=== PATIENT | female | born 2000 | race African-American/Black ===

== ENCOUNTER 2019-11-27 08:09 | Inpatient (IN) | payer MEDICAID ==
[~2019-11-27] VITALS: Ht 167.6 cm; Wt 95.3 kg
[2019-11-27 09:04] LABS: HEMATOCRIT. 53.4 % (36.0-48.0); HEMOGLOBIN. 18.1 g/dL (12.0-16.0); LYMPHOCYTES % 10.6 % (20.0-50.0); MEAN CORPUSCULAR HEMOGLOBIN 33.5 pg (28.0-32.0); MEAN CORPUSCULAR VOLUME 98.8 fL (81.0-99.0); MONOCYTES % 6.5 % (2.0-8.0); NEUTROPHILS % 81.9 % (40.0-76.0); RED CELL DISTRIBUTION WIDTH 13.1 % (11.6-14.6)
[2019-11-27 09:07] LABS: CHLORIDE 97 mEq/L (98-107)
[2019-11-27 09:08] LABS: PROTHROMBIN TIME 10.4 sec (9.6-11.0)
[2019-11-27 09:16] LABS: HCG SCREEN NEGATIVE
[2019-11-27 09:25] LABS: CLARITY URINE CLEAR (CLEAR); KETONES URINE 4+ (NEGATIVE); LEUKOCYTE ESTERASE URINE NEGATIVE (NEGATIVE); NITRITE URINE NEGATIVE (NEGATIVE); OCCULT BLOOD URINE 3+ (NEGATIVE); PROTEIN URINE 2+ (NEGATIVE); SPECIFIC GRAVITY URINE 1.031 (1.005-1.030); UROBILINOGEN URINE 0.2 E.U./dL (0.2-1.0)
[2019-11-27 09:32] LABS: COLOR URINE PALE YELLOW (YELLOW)
[2019-11-27 09:47] LABS: PLATELET 317 x1000/uL (130-400)
[2019-11-27] MEDS ORDERED: INSULIN REGULAR (DRIP) 100 UNITS in SODIUM CHLORIDE 0.9% 99 ML IV SCH (10:15)
[2019-11-27] MEDS ORDERED: SODIUM CHLORIDE 0.9% 1,000 ML IV ONE ×2 (10:27→13:09)
[2019-11-27 10:53] LABS: BG BASE EXCESS -26.7 mmol/L (-2.0-2.0); BG CARBOXYHEMOGLOBIN 0.3 % (0.5-1.5); BG DEOXYHEMOGLOBIN 3.8 % (0.0-5.0); BG FRACTION INSPIRED OXYGEN 21; BG METHEMOGLOBIN 0.3 % (0.0-1.5); BG OXYGEN SATURATION 96.2 % (92.0-98.5); BG OXYHEMOGLOBIN 95.6 % (94.0-97.0); BG PCO2 13.1 mmHg (35.0-45.0); BG PH 6.984 (7.350-7.450); BG PO2 99.8 mmHg (75.0-100.0); BG SAMPLE SITE LEFT BRACHIAL; BG TOTAL HEMOGLOBIN 17.3 g/dL (12.0-18.0); BG VENT MODE ROOM AIR
[2019-11-27] MEDS ORDERED: SODIUM CHLORIDE 0.9% 1,000 ML IV SCH (15:40)
[2019-11-27] MEDS ORDERED: ONDANSETRON HCL 4MG/2ML INJ IV PRN (15:45)
[2019-11-27] MEDS ORDERED: ACETAMINOPHEN 325MG TABLET PO PRN ×2 (15:45)
[2019-11-27] MEDS: DEXT 5%/0.45% NACL 1000ML 1,000 ML IV SCH (16:51)
[2019-11-27 18:34] LABS: CHLORIDE 115 mEq/L (98-107)
[2019-11-27 18:40] LABS: PHOSPHORUS 2.1 mg/dL (2.5-4.9)
[2019-11-27] MEDS ORDERED: SODIUM BICARBONATE 8.4% 1 MEQ/ML 50ML SYR IV NR (18:58)
[2019-11-27] MEDS ORDERED: POTASSIUM PHOS,M-BASIC-D-BASIC 15 MMOL in DEXT 5% WATER 245 ML IV NR (19:30)
[2019-11-27 22:00] VITALS: BP 141/91
[2019-11-27 22:30] VITALS: BP 150/100
[2019-11-27] MEDS ORDERED: INSULIN REGULAR (DRIP) 100 UNITS in SODIUM CHLORIDE 0.9% 99 ML IV PRN (22:30)
[2019-11-27 22:34] VITALS: BP 141/94
[2019-11-27] MEDS ORDERED: DEXTROSE 50% WATER 50ML SYRINGE IV PRN ×2 (22:45)
[2019-11-27] MEDS ORDERED: BLOOD SUGAR DIAGNOSTIC STRIP TEST SCH (22:45)
[2019-11-27] MEDS: BLOOD SUGAR DIAGNOSTIC STRIP TEST SCH (22:59)
[2019-11-27 23:00] VITALS: BP 132/100
[2019-11-27] MEDS ORDERED: INSULIN REGULAR (DRIP) 100 UNITS in SODIUM CHLORIDE 0.9% 100 ML IV SCH (23:00)
[2019-11-27 23:30] VITALS: BP 143/92
[2019-11-27] MEDS ORDERED: INFLUENZA VACCINE 05/PF 0.5 ML VIAL IM ONE (23:30)
[2019-11-27] MEDS ORDERED: PNEUMOCOCCAL 23-VAL P-SAC VAC 0.5 ML IM ONE (23:30)
[2019-11-28] VITALS (25 sets, daily range): BP systolic 113–146; BP diastolic 59–92
[2019-11-28] MEDS: BLOOD SUGAR DIAGNOSTIC STRIP TEST SCH ×20 (00:31→19:03)
[2019-11-28] MEDS: DEXT 5%/0.45% NACL 1000ML 1,000 ML IV SCH ×3 (00:58→14:19)
[2019-11-28 05:59] LABS: BASOPHILS % 0.4 % (0.0-2.0); EOSINOPHILS % 0.1 % (0.0-5.0); HEMATOCRIT. 42.5 % (36.0-48.0); HEMOGLOBIN. 14.6 g/dL (12.0-16.0); LYMPHOCYTES % 10.3 % (20.0-50.0); MEAN CORPUSCULAR HEMOGLOBIN 32.5 pg (28.0-32.0); MEAN CORPUSCULAR VOLUME 94.8 fL (81.0-99.0); MEAN PLATELET VOLUME 8.8 fl (7.4-10.4); MONOCYTES % 9.8 % (2.0-8.0); NEUTROPHILS % 79.4 % (40.0-76.0); PLATELET 209 x1000/uL (130-400); RED BLOOD CELL COUNT 4.48 mill/uL (4.2-5.4); RED CELL DISTRIBUTION WIDTH 12.9 % (11.6-14.6)
[2019-11-28 06:02] LABS: CHLORIDE 115 mEq/L (98-107)
[2019-11-28 06:07] LABS: PHOSPHORUS 1.4 mg/dL (2.5-4.9)
[2019-11-28] MEDS ORDERED: MAGNESIUM 1 G PREMIX 100 ML IV NR (10:30)
[2019-11-28] MEDS ORDERED: POTASSIUM PHOS,M-BASIC-D-BASIC 30 MMOL in DEXT 5% WATER 500 ML IV NR (11:30)
[2019-11-28] MEDS: DIPHENHYDRAMINE 50MG/ML VIAL IV PRN (19:03)
[2019-11-28] MEDS ORDERED: DEXTROSE 50% WATER 50ML SYRINGE IV PRN (21:15)
[2019-11-28] MEDS: SODIUM CHLORIDE 0.9% 1,000 ML IV SCH (21:34)
[2019-11-28] MEDS ORDERED: INSULIN GLARGINE UD 100 UNITS/ML SYR SUBCUT NR (22:00)
[2019-11-28] MEDS ORDERED: CEFAZOLIN 500 MG in DEXTROSE 5% WATER 50 ML IV SCH (23:00)
[2019-11-28] MEDS: HYDROCODONE/ACETAMINOPHEN 5/325MG TABLET PO PRN (23:06)
[2019-11-29] VITALS (23 sets, daily range): BP systolic 104–151; BP diastolic 36–90
[2019-11-29] MEDS: CEFAZOLIN 1000MG PREMIX 50 ML IV SCH ×4 (00:34→21:32)
[2019-11-29 07:01] LABS: BASOPHILS % 0.4 % (0.0-2.0); EOSINOPHILS % 0.4 % (0.0-5.0); HEMATOCRIT. 36.8 % (36.0-48.0); LYMPHOCYTES % 16.6 % (20.0-50.0); MEAN CORPUSCULAR HEMOGLOBIN 33.4 pg (28.0-32.0); MEAN CORPUSCULAR VOLUME 94.3 fL (81.0-99.0); MEAN PLATELET VOLUME 8.7 fl (7.4-10.4); MONOCYTES % 9.2 % (2.0-8.0); NEUTROPHILS % 73.4 % (40.0-76.0); PLATELET 179 x1000/uL (130-400); RED CELL DISTRIBUTION WIDTH 12.9 % (11.6-14.6)
[2019-11-29 07:09] LABS: CHLORIDE 112 mEq/L (98-107)
[2019-11-29 07:16] LABS: PHOSPHORUS 1.3 mg/dL (2.5-4.9)
[2019-11-29] MEDS: BLOOD SUGAR DIAGNOSTIC STRIP TEST SCH ×4 (07:55→21:00)
[2019-11-29] MEDS: INSULIN LISPRO 100 UNITS/ML SUBCUT SCH ×4 (08:26→21:00)
[2019-11-29] MEDS: SODIUM CHLORIDE 0.9% 1,000 ML IV SCH (10:23)
[2019-11-29] MEDS: INS NPH/REG HM 70-30 100 UNITS/ML 10ML VIAL (HUMULIN 70-30) SUBCUT SCH ×2 (11:22→17:25)
[2019-11-29] MEDS ORDERED: POTASSIUM PHOS,M-BASIC-D-BASIC 30 MMOL in DEXT 5% WATER 500 ML IV NR (11:30)
[2019-11-29] MEDS: DIPHENHYDRAMINE 50MG/ML VIAL IV PRN (13:44)
[2019-11-30] VITALS (18 sets, daily range): BP systolic 120–141; BP diastolic 45–86
[2019-11-30] MEDS: HYDROCODONE/ACETAMINOPHEN 5/325MG TABLET PO PRN ×2 (00:26→08:34)
[2019-11-30] MEDS ORDERED: CEFAZOLIN SODIUM 1000MG/VIAL IV SCH (06:00)
[2019-11-30 06:05] LABS: CHLORIDE 112 mEq/L (98-107)
[2019-11-30 06:19] LABS: PHOSPHORUS 2.7 mg/dL (2.5-4.9)
[2019-11-30] MEDS: BLOOD SUGAR DIAGNOSTIC STRIP TEST SCH ×2 (08:09→11:58)
[2019-11-30] MEDS: INS NPH/REG HM 70-30 100 UNITS/ML 10ML VIAL (HUMULIN 70-30) SUBCUT SCH ×2 (08:29→17:12)
[2019-11-30] MEDS: CEPHALEXIN 250MG CAPSULE PO SCH ×3 (08:30→17:12)
[2019-11-30] MEDS: INSULIN LISPRO 100 UNITS/ML SUBCUT SCH ×2 (08:30→12:37)
[2019-11-30] MEDS ORDERED: POTASSIUM CHLORIDE 20MEQ TABLET SR PO SCH (10:30)
[2019-11-30] MEDS ORDERED: POTASSIUM CHLORIDE 20MEQ TABLET SR PO NR (14:15)
== END 2019-11-30 17:15 | disposition home or self-care (01) | DRG 420 ==
LOC: ER 08:09 → ENRESERV 20:46 → CVICU 21:44
PROVIDERS: ADMIT Internal Medicine; ATTEND Internal Medicine
DX: E11.10 Type 2 diabetes mellitus with ketoacidosis without coma (principal); E83.39 Other disorders of phosphorus metabolism; R65.10 Systemic inflammatory response syndrome (SIRS) of non-infectious origin without acute organ dysfunction; J45.909 Unspecified asthma, uncomplicated; L02.211 Cutaneous abscess of abdominal wall; E87.6 Hypokalemia; Z83.3 Family history of diabetes mellitus; E87.8 Other disorders of electrolyte and fluid balance, not elsewhere classified
CPT/HCPCS: 36415; 36600; 71045; 74176; 80048; 80051; 80053; 81003; 82375; 82805; 82962; 83735; 84100; 84703; 85025; 93005; 99291; J0690; J1200; J1815; J2405; J3475; J3490; J7030; J7050; J7060